=== PATIENT | male | born 1980 | race Caucasian/White ===

== ENCOUNTER 2024-08-30 10:45 | Inpatient (IN) | payer OTHER ==
[~2024-08-30] VITALS: Ht 185.4 cm; Wt 105.7 kg
[2024-08-30] MEDS ORDERED: LORAZEPAM 2 MG/1 ML VIAL ONE (11:06)
[2024-08-30] MEDS: LORAZEPAM 2 MG/1 ML VIAL IV ONE (11:11)
[2024-08-30] MEDS ORDERED: levETIRAcetam 500 MG/5 ML VIAL IV ONE (11:12)
[2024-08-30] MEDS: levETIRAcetam IV 1,000 MG in IV DEXTROSE 5% 100 ML IV ONE (11:17)
[2024-08-30] MEDS: IV NORMAL SALINE 1000 ML BAG IV ONE (11:17)
[2024-08-30 11:37] LABS: BASOPHILS # (AUTO) 0.1 K/UL (0.0-0.2); BASOPHILS % (AUTO) 0.9 % (0.0-2.0); EOSINOPHILS # (AUTO) 0.7 K/uL (0.0-0.7); EOSINOPHILS % (AUTO) 5.4 % (0.0-7.0); HEMATOCRIT 44.8 % (36.7-47.1); HEMOGLOBIN 14.3 g/dL (12.5-16.3); LYMPHOCYTES # (AUTO) 3.1 K/uL (0.8-4.8); LYMPHOCYTES % (AUTO) 23.1 % (20.5-51.5); MEAN CORPUSCULAR HEMOGLOBIN 31.5 uug (23.8-33.4); MEAN CORPUSCULAR HGB CONC 32 g/dL (32.5-36.3); MEAN CORPUSCULAR VOLUME 98.6 fL (73.0-96.2); MONOCYTES # (AUTO) 1.2 K/uL (0.1-1.30); NEUTROPHILS # (AUTO) 8.3 K/uL (1.8-8.9); NEUTROPHILS % (AUTO) 61.6 % (38.5-71.5); PLATELET COUNT (AUTO) 342 K/uL (152-348); RED BLOOD CELL COUNT(AUTO) 4.54 MIL/uL (4.06-5.63); RED CELL DISTRIBUTION WIDTH 13.8 % (12.1-16.2); WHITE BLOOD COUNT (AUTO) 13.4 K/uL (3.6-10.2)
[2024-08-30] MEDS ORDERED: ACETAMINOPHEN 325 MG TABLET PO PRN (11:45)
[2024-08-30] MEDS ORDERED: ONDANSETRON 4 MG/2 ML VIAL IV PRN (11:45)
[2024-08-30] MEDS ORDERED: LORAZEPAM 2 MG/1 ML VIAL IV PRN (11:45)
[2024-08-30 11:56] LABS: DIFFERENTIAL COMMENT 1
[2024-08-30 12:00] LABS: ALBUMIN 4.3 g/dL (3.4-5.0); BILIRUBIN,DIRECT 0.1 mg/dL (0.0-0.2); BILIRUBIN,TOTAL 0.2 mg/dL (0.2-1.0); CALCIUM 8.7 mg/dL (8.5-10.1); CREATININE 1.4 mg/dL (0.6-1.3); POTASSIUM 4.5 mmol/L (3.5-5.1); TOTAL PROTEIN, SERUM 7.9 g/dL (6.4-8.2)
[2024-08-30 12:09] LABS: MAGNESIUM 2.6 mg/dL (1.8-2.4); PHOSPHOROUS 4.3 mg/dL (2.5-4.9)
[2024-08-30 12:41] LABS: ETHANOL < 3 MG/DL (0-10)
[2024-08-30 15:00] VITALS: BP 111/64; O2SAT 96
[2024-08-30 15:05] VITALS: O2SAT 94
[2024-08-30 15:39] LABS: *AMPHETAMINE, URINE NEGATIVE (NEGATIVE); *BARBITURATE, URINE NEGATIVE (NEGATIVE); *BENZODIAZEPINE, URINE NEGATIVE (NEGATIVE); *CANNABINOID, URINE POSITIVE (NEGATIVE); *COCCAINE, URINE NEGATIVE (NEGATIVE); *OPIATE, URINE NEGATIVE (NEGATIVE); *PHENCYCLIDINE SCREEN,URINE NEGATIVE (NEGATIVE); FENTANYL, URINE NEGATIVE (NEGATIVE)
[2024-08-30] MEDS ORDERED: LAMO250T2 PO (18:04)
[2024-08-30] MEDS ORDERED: LISI-782 PO (18:05)
[2024-08-30] MEDS ORDERED: SERT-440 PO (18:09)
[2024-08-30] MEDS ORDERED: LEVE500T9 PO (18:09)
[2024-08-30] MEDS ORDERED: LEVE1000 PO (18:09)
[2024-08-30] MEDS ORDERED: SERT50TA PO (18:09)
[2024-08-30] MEDS ORDERED: ALBU18HF2 INH (18:10)
[2024-08-30 20:00] VITALS: BP 119/71; TEMP 98.2; O2SAT 96
[2024-08-30] MEDS ORDERED: levETIRAcetam IV 1,000 MG in IV DEXTROSE 5% 100 ML IV SCH (21:00)
[2024-08-31 00:01] VITALS: BP 136/83; TEMP 98.2; O2SAT 96
[2024-08-31 05:10] LABS: BASOPHILS # (AUTO) 0.1 K/UL (0.0-0.2); BASOPHILS % (AUTO) 0.7 % (0.0-2.0); EOSINOPHILS # (AUTO) 0.2 K/uL (0.0-0.7); HEMATOCRIT 40.3 % (36.7-47.1); LYMPHOCYTES # (AUTO) 1.3 K/uL (0.8-4.8); MEAN CORPUSCULAR HEMOGLOBIN 31.7 uug (23.8-33.4); MEAN CORPUSCULAR HGB CONC 35 g/dL (32.5-36.3); MONOCYTES # (AUTO) 0.8 K/uL (0.1-1.30); MONOCYTES % (AUTO) 7.9 % (0.0-11.0); NEUTROPHILS # (AUTO) 7.9 K/uL (1.8-8.9); NEUTROPHILS % (AUTO) 76.4 % (38.5-71.5); PLATELET COUNT (AUTO) 267 K/uL (152-348); RED BLOOD CELL COUNT(AUTO) 4.43 MIL/uL (4.06-5.63); RED CELL DISTRIBUTION WIDTH 13.2 % (12.1-16.2); WHITE BLOOD COUNT (AUTO) 10.4 K/uL (3.6-10.2)
[2024-08-31 05:29] LABS: DIFFERENTIAL COMMENT 1
[2024-08-31 05:46] LABS: ALBUMIN 3.9 g/dL (3.4-5.0); BILIRUBIN,TOTAL 0.4 mg/dL (0.2-1.0); CALCIUM 9.1 mg/dL (8.5-10.1); PHOSPHOROUS 3.9 mg/dL (2.5-4.9); POTASSIUM 4.1 mmol/L (3.5-5.1); TOTAL PROTEIN, SERUM 7.1 g/dL (6.4-8.2)
[2024-08-31] MEDS: SERTRALINE HCL 100 MG TABLET PO SCH (08:14)
[2024-08-31] MEDS: levETIRAcetam 500 MG TABLET PO SCH ×2 (08:14→16:47)
[2024-08-31] MEDS: LISINOPRIL 5 MG TABLET PO SCH (08:15)
[2024-08-31] MEDS ORDERED: LAMOTRIGINE 250 MG PO SCH (09:00)
[2024-08-31 09:38] VITALS: BP 107/55; TEMP 98.2; O2SAT 99
[2024-08-31] MEDS ORDERED: LAMOTRIGINE 100 MG TABLET PO SCH (12:00)
[2024-08-31] MEDS ORDERED: SWABABLE VALVE TRANSFER SET EA MC ONE (12:31)
[2024-08-31] MEDS ORDERED: IOHEXOL 350 100 ML INFUS..BTL ONE (12:31)
[2024-08-31] MEDS ORDERED: IV NORMAL SALINE 250 ML IV ONE (12:32)
[2024-08-31 13:21] LABS: THYROID STIMULATING HORMONE 0.55 mIU/mL (0.358-3.740)
[2024-08-31 15:12] VITALS: BP 121/69; TEMP 98.4; O2SAT 96
[2024-08-31] MEDS: SERTRALINE HCL 50 MG TABLET PO SCH (16:48)
[2024-09-01] MEDS ORDERED: LAMOTRIGINE 200 MG TABLET PO SCH (09:00)
== END 2024-08-31 17:00 | disposition short-term general hospital (02) | DRG 100 ==
LOC: ER 10:45 → CCU 12:36 → TELE3 08-31 07:30 → MEDSURG3 08-31 10:45
PROVIDERS: ADMIT Internal Medicine; ATTEND Internal Medicine
DX: G40.909 Epilepsy, unspecified, not intractable, without status epilepticus (principal); J96.00 Acute respiratory failure, unspecified whether with hypoxia or hypercapnia; E87.20 Acidosis, unspecified; N17.8 Other acute kidney failure; D72.829 Elevated white blood cell count, unspecified; Z86.018 Personal history of other benign neoplasm; Z98.890 Other specified postprocedural states; Z79.899 Other long term (current) drug therapy
CPT/HCPCS: 36415; 70450; 70496; 71045; 83735; 83921; 84100; 84443; 85025; A4606; A4663; C1758; G0378; G0480; J1953; J2060; J7040; Q9967